=== PATIENT | male | born 1995 | race African-American/Black ===

== ENCOUNTER 2022-08-12 19:36 | Emergency (ER) | payer OTHER, SELFPAY ==
--- NOTE | 2022-08-12 20:31 | DI.RAD.S_ITS ---
PROCEDURE: XR ANKLE RT MIN 3V INDICATIONS: c/o injury TECHNIQUE: 3 views of the ankle were acquired. COMPARISON: None. FINDINGS: Bones: No fractures or dislocations. Ankle mortise is normally aligned. No suspicious bony lesions. Soft tissues: No tibiotalar joint effusion. Achilles tendon appears intact. IMPRESSION: 1. No fracture or dislocation. Dictated by: Jb Romero M.D. on 08/12/2022 at 22:14 Approved by: Jb Romero M.D. on 08/12/2022 at 22:14
[2022-08-12 21:07] VITALS: BP 159/81; PULSE 72; RESP 17; TEMP 36.9; O2SAT 100; BMI 32.8
--- NOTE | 2022-08-12 23:55 | ED.LOWEXIN ---
HPI - Extremity Injury (Lower) General Chief Complaint: Extremity Injury, Lower Stated Complaint: Right ankle injury Time Seen by Provider: 08/12/22 23:45 Source: patient Mode of arrival: Ambulatory History of Present Illness HPI Narrative: Patient is a 27-year-old male who is here for evaluation of the right ankle injury. He states that the injury occurred while he was playing football. States that it was just during the game when he started to play when he noticed pain in the back of his right ankle. He has been ambulatory since then. Pain has somewhat increased since the initial event. Is also now having some swelling. No prior injuries. Related Data Allergies Allergy/AdvReac Type Severity Reaction Status Date / Time No Known Drug Allergies Allergy Verified 08/12/22 21:12 Review of Systems Constitutional Constitutional: Reports system reviewed and no additional complaints, except as documented Musculoskeletal Musculoskeletal: Reports system reviewed and no additional complaints, except as documented Integumentary/Breasts Skin/Breast: Reports system reviewed and no additional complaints, except as documented Neurologic Neurologic: Reports system reviewed and no additional complaints, except as documented Hematologic/Lymphatic On Anticoagulants: No Patient History Medical History Healthy adult Social History Smoking Status: Current some day smoker Smoking Status: Current some day smoker tobacco type: vaping alcohol intake frequency: 0-2 drinks per day Substance Use Type: does not use Exam Initial Vital Signs Initial Vital Signs: Vital Signs Temperature 98.5 F 08/12/22 21:07 Pulse Rate 72 08/12/22 21:07 Respiratory Rate 17 08/12/22 21:07 Blood Pressure 159/81 H 08/12/22 21:07 Pulse Oximetry 100 08/12/22 21:07 Oxygen Delivery Method 08/12/22 21:07 Const General: cooperative and comfortable HENMT Head: normal to inspection and normocephalic Cardio Pulses: dorsalis pedis present on the right Skin General: no rashes or lesions noted Neuro Sensory Exam: no sensory deficits noted Extrem Other: Right knee is unremarkable. Right proximal tibia and fibula are unremarkable. Patient does not have any tenderness along the mediolateral malleolus. No tenderness along the anterior tibiotalar joint. His right foot is unremarkable. He does have tenderness along the midportion of the Achilles tendon posterior with what appears to be a deficit that is felt. He is able to plantar flex and dorsiflex without issue. He does seem to have localized tenderness along this deficit. Procedures Orthopedic Splinting/Casting Injury #1: Side: right Lower Extremity Injury Location: ankle Lower Extremity Immobilizer: Boni wrap Post splinting neuro exam: no change Post splinting vascular exam: no change Placed by: Nursing Course Orders Ordered: ED Orders 08/12/22 20:31 XR ankle RT min 3V Stat Vital Signs Vital signs: Vital Signs - 8 hr 08/12/22 21:07 Temperature 98.5 F Pulse Rate 72 Respiratory Rate 17 Blood Pressure 159/81 H Pulse Oximetry 100 Oxygen Delivery Method Room Air MDM - Extremity Injury (Lower) Imaging Data Extremity x-ray #1: Radiologist's Impression: [address] [address] XRay Report Signed Patient: Silvano Miranda MR#: [id number] : 1995 Acct:[id number] Age/Sex: 27 / M Date of Service: 08/12/22 Loc: ED Accession Number: [id number] ?? Procedure: XR ankle RT min 3V Ordering Provider: Sav Myrick D.O. PROCEDURE:? XR ANKLE RT MIN 3V ? INDICATIONS:? c/o injury ? TECHNIQUE:? 3 views of the ankle were acquired.? ? COMPARISON:? None. ? FINDINGS:? ? Bones:? No fractures or dislocations.? Ankle mortise is normally aligned.? No suspicious bony lesions.? ? Soft tissues:? No tibiotalar joint effusion.? Achilles tendon appears intact.? ? ? IMPRESSION:? ? 1. No fracture or dislocation. ? ? ? Dictated by: Jb Romero M.D. on 08/12/2022 at 22:14 ? ? Approved by: Jb Romero M.D. on 08/12/2022 at 22:14? [facility] Narrative Medical decision making narrative: X-rays show no signs of fracture. The Achilles tendon appears to be intact on the x-ray. He is able to plantar and dorsiflex his right ankle. I have lower suspicion for complete Achilles tendon rupture however there does appear to be a small deficit in his Achilles tendon to palpation in the seems to be the area where he is having most discomfort. Boni bandage and crutches were given for his comfort. Patient is able to ambulate but we discussed the importance of not running or jumping. 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 He was given a copy of his x-rays on a CD. Was given a note for work. He was given return precautions. He expressed understanding and agreement. Discharge Plan Departure Patient Disposition: Home Clinical Impression: Achilles tendon injury Instructions: How to Apply an Elastic Wrap on Ankle Activity Restrictions/Additional Instructions: You can walk on your right ankle as tolerated. Use the crutches as needed. I recommend that tomorrow you contact the Orthopedic Department on the [facility] for a follow-up within the next week. Let them know that we are concerned that you have a partial tear of your Achilles tendon. Return to the emergency department for any new or worsening symptoms. Stand Alone Forms: Work Release Note Visit Report Forms: Patient Portal/API
== END 2022-08-13 00:12 | disposition home or self-care (01) ==
PROVIDERS: Emergency Provider Emergency Medicine
DX: S86.001A Unspecified injury of right Achilles tendon, initial encounter (principal); Y93.61 Activity, american tackle football
CPT/HCPCS: 73610; 99283